=== PATIENT | female | born 1975 | race Caucasian/White ===

== ENCOUNTER → 2018-01-17 | Day surgery (SDC) | payer OTHER ==
--- NOTE | 2018-01-17 11:13 | OP ---
DATE OF OPERATION: 01/17/2018 PREOPERATIVE DIAGNOSIS: Abnormal right mammography. POSTOPERATIVE DIAGNOSIS: Abnormal right mammography. PROCEDURE: Right stereotactic needle biopsy with clip. SURGEON: Marlen Barth MD ANESTHESIA: Local. COMPLICATIONS: None. This was a sterile procedure. INDICATIONS FOR PROCEDURE: Patient presented with a screening mammography that noted multiple areas of loosely clustering microcalcifications and a specific cluster in the retroareolar right breast. She also had an ultrasound that noted a questionable complex cyst versus solid nodule in the right 6 o'clock location. I biopsied the 6 o'clock location nodule in the office under ultrasound guidance. This was benign, but my recommendation was still to biopsy the cluster of microcalcifications in the retroareolar right breast. The procedure with stereotactic needle biopsy with clip was discussed, and all the questions answered. PROCEDURE IN DETAIL: Patient was brought to [facility] in [place], laid prone on the [place] table. Using the caudal first, the calcifications in the retroareolar right breast were identified. A sterile prep was obtained. A target was chosen. There was a positive stroke margin. Using Betadine and 1% lidocaine, a 10-gauge Suros device was used to take several cores in this area. Cores showed calcification within them. These were handled using calcification protocol. A clip was deployed in the area. Hemostasis was assured with direct pressure. Steri-Strips were used to close the incision. She tolerated the procedure well and left the breast imaging center in good condition. MARLEN BARTH M.D. [id number]
--- NOTE | 2018-01-18 11:30 | PATH ---
Surgical Pathology Report Patient Name: PARK ALFARO [facility]. Rec. #: [id number] /Age/Gender: 1975 (Age: 42) / F Account: [id number] Location: [facility] Taken: 01/17/2018 Received: 01/17/2018 Reported: 01/18/2018 Physicians: Marlen Lamb M.D. Specimen(s) Received A: RIGHT BREAST SPECIMEN WITH CALCIFICATIONS B: RIGHT BREAST SPECIMEN WITHOUT CALCIFICATIONS Clinical History Nonpalpable lesion Mammographic findings: Microcalcification, suspicious Final Diagnosis A. 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 REMAINING BREAST TISSUE WITH FIBROCYSTIC CHANGES INCLUDING FLORID USUAL DUCTAL HYPERPLASIA (UDH), STROMAL FIBROSIS, DUCTAL DILATATION, AND CYSTIC APOCRINE METAPLASIA. B. RIGHT BREAST, WITHOUT CALCIFICATION, STEREOTACTIC NEEDLE CORE BIOPSY: FIBROCYSTIC CHANGES INCLUDING FLORID USUAL DUCTAL HYPERPLASIA (UDH), STROMAL FIBROSIS, DUCTAL DILATATION, AND CYSTIC APOCRINE METAPLASIA. Electronically Signed Naif Rae M.D. Gross Description A. Received in formalin labeled "right breast with calcifications," are 2 reveles-yellow, cylindrical portions of fibroadipose tissue measuring 1.4 and 2.0 cm in length and averaging 0.2 cm in diameter. The specimens are submitted in toto in one cassette. B. Received in formalin labeled "right breast without calcifications," are 7 reveles-yellow, cylindrical portions of fibroadipose tissue ranging from 0.8-1.8 cm in length and averaging 0.2 cm in diameter. The specimens are submitted in toto in one cassette. Time to formalin fixation: 10 minutes Total formalin fixation time: Approximately 8 hours. 01/17/2018 [facility]01/17/2018
== END | disposition home or self-care (01) ==
LOC: FMAMMOTONE 08:52
PROVIDERS: ATTEND Surgery
PROC: 0HBT3ZX Excision of Right Breast, Percutaneous Approach, Diagnostic (ICD-10-PCS; principal; 2018-01-17)
DX: D24.1 Benign neoplasm of right breast (principal); R92.8 Other abnormal and inconclusive findings on diagnostic imaging of breast; N60.81 Other benign mammary dysplasias of right breast; N60.11 Diffuse cystic mastopathy of right breast; N64.89 Other specified disorders of breast
CPT/HCPCS: 19081; 87899; 88305-TC; A4648

== ENCOUNTER 2018-04-04 23:25 | Emergency (ER) | payer OTHER ==
[2018-04-04 23:30] VITALS: BP 124/75; PULSE 72; TEMP 98.1; BMI 26.6
--- NOTE | 2018-04-05 00:04 | PDOC ---
History of Present Illness - General Chief Complaint: Vaginal Bleeding Stated Complaint: VAGINAL BLEEDING Time Seen by Provider: 04/04/18 23:46 History Source: Patient - History of Present Illness Initial Comments: 04/05/18 00:17 42 year old female with heavy vaginal bleeding with clots for the last three days. patient unable to equate the # of pads now using diapers. patient also reports left pelvic pain. denies being . patient denies fever/ chill, NVD, abdominal pain Past History - Past Medical History Allergies/Adverse Reactions: Allergies Allergy/AdvReac Type Severity Reaction Status Date / Time No Known Allergies Allergy Verified 03/15/18 12:02 Home Medications: Ambulatory Orders NK [No Known Home Medication] 11/24/15 COPD: No - Surgical History Cholecystectomy: Yes (~2014) - Reproductive History Is Patient Now?: No (#): 4 Para: 2 Cervical CA: No Dysfunctional Uterine Bleeding: No Ectopic : No Endometrial CA: No Polycystic Ovaries: No Therapeutic (s) & number: No Tubal Ligation: No Spontaneous : 1 - Suicide/Smoking/Psychosocial Hx Smoking Status: No Smoking History: Never smoked Number of Cigarettes Smoked Daily: 0 Hx Alcohol Use: No Drug/Substance Use Hx: No Substance Use Type: None Review of Systems - Review of Systems Able to Perform ROS?: Yes Is the patient limited Uzbek proficient: No Constitutional: No: Symptoms Reported, See HPI, Chills, Diaphoresis, Fever, Loss of Appetite, Malaise, Night Sweats, Weakness, Weight Stable, Unintentional Wgt. Loss, Unexplained wgt Loss, Other ABD/GI: No: Symptoms Reported, See HPI, Abdominal Distended, Abd. Pain w/ defecation, Blood Streaked Bowels, Constipated, Diarrhea, Difficulty Swallowing , Nausea, Poor Appetite, Poor Fluid Intake, Rectal Bleeding, Vomiting, Indigestion, Abdominal cramping, Tarry Stools, Other : Yes: Other (vaginal bleeding). No: Symptoms Reported, See HPI, Burning, Dysuria, Discharge, Frequency, Flank Pain, Hematuria, Incontinence, Pain, Urgency, Testicular Mass, Testicular Swelling, Lesions, Testicular Pain *Physical Exam - Vital Signs Last Vital Signs Temp Pulse Resp BP Pulse Ox 98.1 F 72 18 124/75 99 04/04/18 23:28 04/04/18 23:28 04/04/18 23:28 04/04/18 23:28 04/04/18 23:28 - Physical Exam General Appearance: Yes: Appropriately Dressed, Mild Distress Female Pelvic Exam: positive: normal external exam, adnexal tenderness (left adnexal tenderness), vaginal bleeding (with large clots in vaginal vault) Gastrointestinal/Abdominal: positive: Normal Bowel Sounds, Soft Extremity: positive: Normal Capillary Refill, Normal Inspection, Normal Range of Motion Integumentary: positive: Normal Color, Dry, Warm Neurologic: positive: Fully Oriented, Alert, Normal Mood/Affect ED Treatment Course - LABORATORY CBC & Chemistry Diagram: 04/05/18 00:00 Progress Note - Progress Note Progress Note: A: pelvic; vaginal bleeding P: TVUS: polyp? discussed patient to follow up with room server CBC CM UA *DC/Admit/Observation/Transfer Diagnosis at time of Disposition: Vaginal bleeding - Discharge Dispostion Disposition: HOME - Referrals Referrals: Madeline Velazquez MD [Staff Physician] - - Patient Instructions Printed Discharge Instructions: DI for Vaginal Bleeding Additional Instructions: please follow up with a room server as soon as possible. return to the ER if you are soaking 2 pads per hour, severe abdominal pain or worsening symptoms. - Post Discharge Activity Forms/Work/School Notes: Back to Work
--- NOTE | 2018-04-05 00:10 | PDOC ---
*Physical Exam - Vital Signs Last Vital Signs Temp Pulse Resp BP Pulse Ox 98.1 F 72 18 124/75 99 04/04/18 23:28 04/04/18 23:28 04/04/18 23:28 04/04/18 23:28 04/04/18 23:28 ED Treatment Course - LABORATORY CBC & Chemistry Diagram: 04/05/18 00:00 Medical Decision Making - Medical Decision Making 04/05/18 00:10 agree with care from SHILOH Duong *DC/Admit/Observation/Transfer Diagnosis at time of Disposition: Vaginal bleeding - Discharge Dispostion Disposition: HOME - Referrals Referrals: Madeline Velazquez MD [Staff Physician] - - Patient Instructions Printed Discharge Instructions: DI for Vaginal Bleeding Additional Instructions: please follow up with a search engine optimization analyst as soon as possible. return to the ER if you are soaking 2 pads per hour, severe abdominal pain or worsening symptoms. - Post Discharge Activity Forms/Work/School Notes: Back to Work
[2018-04-05 00:18] LABS: BASO % 0.7 % (0-2.0); EOS % 1.3 % (0-4.5); HEMATOCRIT 34.9 % (32.4-45.2); HEMOGLOBIN 11.7 GM/dL (10.7-15.3); LYMPH % 32.7 % (8-40); MCH 29.1 pg (25.7-33.7); MCHC 33.6 g/dl (32.0-36.0); MEAN CELL VOLUME 86.7 fl (80-96); MEAN PLT VOLUME 9.2 fl (7.5-11.1); MONO % 6.9 % (3.8-10.2); NEUT % 58.4 % (42.8-82.8); PLATELET COUNT 210 K/MM3 (134-434); RBC 4.03 M/mm3 (3.60-5.2); RDW 15.9 % (11.6-15.6); WHITE BLOOD COUNT 8.7 K/mm3 (4.0-10.0)
[2018-04-05 00:40] LABS: INR 0.98 (0.82-1.09); PROTHROMBIN TIME (PATIENT) 11.1 SEC (9.7-13.0)
== END 2018-04-05 02:42 | disposition home or self-care (01) ==
LOC: JER 23:25
DX: N93.8 Other specified abnormal uterine and vaginal bleeding (principal)
CPT/HCPCS: 36415; 76830-TC; 84702; 85025; 85610; 86850; 86900; 86901; 99282-25

== ENCOUNTER 2018-04-27 07:25 | Day surgery (SDC) | payer OTHER ==
[2018-03-15 12:17] VITALS: BMI 27.9
[2018-04-27] MEDS ORDERED: PROPOFOL 20 ML ONE (10:54)
[2018-04-27] MEDS ORDERED: MIDAZOLAM HCL 2 MG/2 ML SINGLE DOSE VIAL ONE (10:55)
[2018-04-27] MEDS ORDERED: SUCCINYLCHOLINE CHLORIDE 200 MG/10 ML VIAL ONE (10:55)
[2018-04-27] MEDS ORDERED: LIDOCAINE HCL 1%, 10 MG/ML (20ML VIAL) ONE (11:01)
[2018-04-27] MEDS ORDERED: oxyCODONE HCL 5 MG TABLET PO PRN (11:12)
[2018-04-27] MEDS ORDERED: ONDANSETRON 4 MG/2 ML VIAL IVPUSH PRN (11:12)
[2018-04-27] MEDS ORDERED: LACTATED RINGERS SOLUTION 1,000 ML IV SCH (11:15)
[2018-04-27] MEDS ORDERED: DEXAMETHASONE SOD PHOSPHATE 4 MG/1 ML VIAL ONE (11:23)
[2018-04-27] MEDS ORDERED: ceFAZolin SODIUM 1 GM VIAL IVPB ONE (11:30)
[2018-04-27] MEDS ORDERED: LIDOCAINE HCL 1%, 10 MG/ML (20ML VIAL) INF ONE (11:43)
[2018-04-27 13:24] VITALS: TEMP 98
[2018-04-27] MEDS ORDERED: oxyCODONE HCL 5 MG TABLET ONE (13:56)
[2018-04-27] MEDS ORDERED: oxyCODONE HCL 5 MG TABLET PO ONE (14:00)
--- NOTE | 2018-04-27 14:01 | OP ---
DATE OF OPERATION: 04/27/2018 PREOPERATIVE DIAGNOSIS: Right breast intraductal papilloma. POSTOPERATIVE DIAGNOSIS: Right breast intraductal papilloma. PROCEDURE: Right breast wire-localized excision of mass. SURGEON: Marlen Lamb MD ANESTHESIA: General. ESTIMATED BLOOD LOSS: Minimal. COMPLICATIONS: None. DISPOSITION: Stable. This was a sterile procedure. INDICATIONS FOR PROCEDURE: Patient presented with a screening mammogram and ultrasound that were noted some calcifications in the retroareolar right breast. Needle biopsy showed an intraductal papilloma. My recommendation was then an excision. The procedure was discussed with all the questions answered. PROCEDURE IN DETAIL: Patient was brought to [facility] in [place], taken to breast imaging where wire was used to localize the clip in the retroareolar inner right breast. She was then brought into the operating room, and after induction of general anesthesia and IV antibiotics, the right breast was prepped in the usual sterile fashion. The area in the inner right breast was anesthetized with 1% lidocaine, no epinephrine. A periareolar incision was made in the inner right breast, and a wire was used as a guide to get down to the area of interest. This was excised en bloc and sent as an excisional right breast mass for specimen radiograph. The hemostasis was assured with electrocautery. The parenchyma approximated with interrupted 2-0 Vicryl. Skin approximated with interrupted 3-0 Vicryl, running 4-0 Prolene. The specimen radiograph showed the clip and wire to be intact within the specimen. Once the incision was closed, sterile dressing of Tegaderm 4x4 was applied. She tolerated the procedure well, was extubated on the operating room table, and taken to recovery in good condition. Duy [id number]
[2018-04-27 15:17] VITALS: BP 111/71; PULSE 70
--- NOTE | 2018-05-02 08:43 | PATH ---
Surgical Pathology Report Patient Name: PARK CÁRDENAS [facility]. Rec. #: [id number] /Age/Gender: 1975 (Age: 42) / F Account: [id number] Location: AMBULATORY SURG Taken: 04/27/2018 Received: 04/27/2018 Reported: 05/02/2018 Physicians: Marlen Lamb M.D. Specimen(s) Received RIGHT BREAST EXCISION OF MASS Clinical History Right breast intraductal papilloma Final Diagnosis RIGHT BREAST MASS, EXCISION: BREAST TISSUE WITH INTRADUCTAL PAPILLOMA, ADENOSIS, USUAL DUCTAL HYPERPLASIA, APOCRINE METAPLASIA, FIBROSIS, AND CALCIFICATIONS. REACTIVE CHANGES AT PRIOR BIOPSY SITE. Electronically Signed Lyly Rosado M.D. Gross Description Received in formalin, labeled "right breast excision of mass," is a 6 g, 3.5 x 2.5 x 0.7 cm. reveles-yellow, irregular, portion of fibroadipose tissue with a needle localization wire present. The specimen is not oriented. The surface of the specimen is inked blue. The specimen is serially sectioned and revealed heterogenous fibroadipose tissue. No definite mass is identified. The specimen is entirely submitted in 7 cassettes. Tissue formalin fixation time: 8 hours STELLA/04/28/2018 hosea/04/28/2018
== END 2018-04-27 15:18 | disposition home or self-care (01) ==
LOC: JASUSAT 07:25
PROVIDERS: ATTEND Surgery
PROC: 0HBT0ZX Excision of Right Breast, Open Approach, Diagnostic (ICD-10-PCS; principal; 2018-04-27 10:45)
DX: D24.1 Benign neoplasm of right breast (principal)
CPT/HCPCS: 19281; 84703; 88307-TC; 94760